=== PATIENT | male | born 1975 | race Caucasian/White ===

== ENCOUNTER 2019-01-12 06:31 | Day surgery (SDC) | payer MEDICAID, OTHER ==
[2019-01-12] MEDS ORDERED: Lidocaine 1% with EPINEPHrine 1:100,000 50 ML MDV ONE (06:53)
[2019-01-12] MEDS ORDERED: Bupivacaine 0.5% 50 ML MDV ONE (06:53)
[2019-01-12] MEDS ORDERED: Dextrose 5%-Lactated Ringers 1,000 ML IV SCH (07:00)
[2019-01-12] MEDS ORDERED: fentaNYL 100 MCG/2 ML SDV ONE (07:43)
[2019-01-12] MEDS ORDERED: Midazolam 1 MG/ML 2 ML SDV ONE (07:43)
[2019-01-12] MEDS ORDERED: Propofol 200 MG/20 ML SDV ONE (07:43)
[2019-01-12] MEDS ORDERED: Ibuprofen 600 MG Tab PO PRN (08:58)
[2019-01-12] MEDS ORDERED: Acetaminophen 325 MG Tab PO PRN (08:58)
--- NOTE | 2019-01-13 08:10 | OR ---
DATE OF PROCEDURE: 01/12/2019 PREOPERATIVE DIAGNOSIS: Lymphadenopathy. POSTOPERATIVE DIAGNOSIS: Lymphadenopathy. PROCEDURE: Right inguinal lymph node biopsy. SURGEON: Naveed Harris MD ANESTHESIA: IV anesthesia with monitored anesthesia care. INDICATION: This 43-year-old white male noted bilateral inguinal lymph nodes. Ultrasound show that they did not appear particularly worrisome; however, when he felt a node developing in his neck, we decided to proceed with excisional biopsy of one of the largest in the right inguinal area. I counseled him for excisional biopsy of a right inguinal lymph node, including risks and alternatives, and he gave his informed consent to proceed. DESCRIPTION OF PROCEDURE: After adequate IV anesthesia was obtained, the lymph node with the thickest wall in the right inguinal area was selected and was marked by the system sales consultant. His lower abdomen, groin, and genitalia were prepped and draped in the usual sterile fashion. Lidocaine 1% with epinephrine in a 50:50 mix with 0.5% Marcaine was infiltrated about the right groin over the lymph node. An oblique incision parallel to the skin lines was made. This was a small incision that was carried deep, bluntly and sharply, to the lymph node. This was excised and sent to pathology. The incision was irrigated and dried. All looked well. An interrupted stitch of 3-0 Vicryl was used to close the deep tissues, 4-0 Vicryl using a subcuticular stitch was placed to approximate the skin. Dermabond was applied. The patient tolerated the procedure well and was brought to the recovery room in good condition. Naveed Harris MD /[id number]
== END 2019-01-12 10:00 | disposition home or self-care (01) ==
LOC: JP.SDS 06:31
PROVIDERS: ATTEND Surgery
DX: R59.1 Generalized enlarged lymph nodes (principal); E11.9 Type 2 diabetes mellitus without complications; J45.909 Unspecified asthma, uncomplicated; G47.33 Obstructive sleep apnea (adult) (pediatric); Z88.0 Allergy status to penicillin
CPT/HCPCS: 38531; 76998; A9270; J2250; J2704; J3010; J3490; J7042; 88307; 88341; 88342